=== PATIENT | female | born 1955 | race Two or more races ===

== ENCOUNTER → 2021-01-27 | Emergency (ER) | payer OTHER ==
[~2021-01-27] VITALS: Ht 154.9 cm; Wt 63.5 kg
== END | disposition left against medical advice (07) ==
LOC: ER 02:28
DX: Z53.20 Procedure and treatment not carried out because of patient's decision for unspecified reasons (principal)

== ENCOUNTER 2021-08-22 07:11 | Outpatient (CLI) | payer OTHER | END 2021-08-22 07:19 | disposition home or self-care (01) | LOC: RAD 07:11 | PROVIDERS: ATTEND Ophthalmology | DX: I10 Essential (primary) hypertension (principal); I15.8 Other secondary hypertension ==

== ENCOUNTER 2021-11-21 14:43 | Outpatient (CLI) | payer OTHER | END 2021-11-21 14:56 | disposition home or self-care (01) | LOC: RAD 14:43 | PROVIDERS: ATTEND Orthopaedic Surgery | DX: M25.572 Pain in left ankle and joints of left foot (principal) ==

== ENCOUNTER 2022-01-06 08:08 | Outpatient (CLI) | payer OTHER | END 2022-01-06 08:09 | disposition home or self-care (01) | LOC: SONOGRAMA 08:08 | PROVIDERS: ATTEND Internal Medicine Gastroenterology | DX: R10.13 Epigastric pain (principal) ==

== ENCOUNTER 2022-11-01 12:37 | Outpatient (CLI) | payer OTHER | END 2022-11-01 12:44 | disposition home or self-care (01) | LOC: RAD 12:37 | PROVIDERS: ATTEND Internal Medicine Cardiovascular Disease | DX: M12.9 Arthropathy, unspecified (principal) ==

== ENCOUNTER 2022-11-17 10:40 | Outpatient (CLI) | payer OTHER | END 2022-11-17 10:51 | disposition home or self-care (01) | LOC: MRI 10:40 → NUCLEAR 13:00 | PROVIDERS: ATTEND Orthopaedic Surgery | DX: M17.11 Unilateral primary osteoarthritis, right knee (principal); M23.91 Unspecified internal derangement of right knee | CPT/HCPCS: 73721 ==

== ENCOUNTER 2022-12-08 13:03 | Outpatient (CLI) | payer OTHER | END 2022-12-08 13:04 | disposition home or self-care (01) | LOC: NUCLEAR 13:03 | PROVIDERS: ATTEND Orthopaedic Surgery | DX: M81.0 Age-related osteoporosis without current pathological fracture (principal) ==

== ENCOUNTER → 2023-02-14 10:19 | Outpatient (CLI) | payer OTHER | END | disposition home or self-care (01) | LOC: LAB 10:19 | PROVIDERS: ATTEND Orthopaedic Surgery | DX: M85.9 Disorder of bone density and structure, unspecified (principal); D56.1 Beta thalassemia; E83.42 Hypomagnesemia ==

== ENCOUNTER 2023-10-30 07:35 | Outpatient (CLI) | payer OTHER | END 2023-10-30 07:41 | disposition home or self-care (01) | LOC: SONOGRAMA 07:35 | PROVIDERS: ATTEND Internal Medicine Gastroenterology | DX: R10.13 Epigastric pain (principal) ==

== ENCOUNTER → 2024-11-20 | Outpatient (CLI) | payer OTHER | END | disposition home or self-care (01) | LOC: MAMO-SONO 13:41 | PROVIDERS: ATTEND Internal Medicine Cardiovascular Disease | DX: N60.11 Diffuse cystic mastopathy of right breast (principal); N60.12 Diffuse cystic mastopathy of left breast; Z12.31 Encounter for screening mammogram for malignant neoplasm of breast ==